=== PATIENT | female | born 2000 | race Caucasian/White ===

== ENCOUNTER 2022-08-07 06:48 | Outpatient (OUT) | payer OTHER, SELFPAY ==
--- NOTE | 2022-08-07 06:58 | US_ITS ---
The [address] [address] Patient Name: CHRISTIAN ASENCIO MRN: [id number] date: 2000 Sex: F Assigned Patient Location: US Current Patient Location: US Accession/Order Number: [id number] Exam Date: 08/07/2022 07:00 Report Date: 08/07/2022 07:33 At the request of: SEBASTIAN ORELLANA Procedure: US right upper quadrant EXAM: US right upper quadrant HISTORY: Right upper quadrant pain R10.11 COMPARISON: None. TECHNIQUE: Grayscale, color and Doppler ultrasound FINDINGS: The liver is normal in size, contour and echotexture. No focal hepatic mass. Hepatopedal flow in the portal vein. The gallbladder is normal in size. The wall measures 2.1 mm, normal. Negative sonographic Sevilla sign. The common bile duct measures 3.5 mm, normal. The pancreas is normal in appearance The kidney is normal measuring 11.9 x 4.2 x 4.1 cm. No free fluid IMPRESSION: No acute abnormality Electronically authenticated by: PRIYANKA CHINCHILLA Date: 08/07/2022 07:33
== END 2022-08-07 06:49 | disposition home or self-care (01) ==
LOC: US 06:53
PROVIDERS: PCP Family Medicine; Visit Provider Family Medicine
DX: R10.11 Right upper quadrant pain (principal)
CPT/HCPCS: 76705